=== PATIENT | male | born 1960 | race Caucasian/White ===

== ENCOUNTER 2019-01-22 07:03 | Day surgery (SDC) | payer OTHER, SELFPAY ==
--- NOTE | 2019-01-22 06:34 | COLE_ITS ---
Date of service: 01/22/19 Time of Service: 08:00 Colonoscopy Report Date of procedure: 01/22/19 Pre-op diagnosis general: Colon Cancer Screening Post-op diagnosis procedure note: other (Colorectal polyps and mild sigmoid diverticulosis) Procedure: Colonoscopy with polypectomy by cold forceps and cold snare Surgeon: Micaela Azul Anesthesia proc note operative: other (General/ ASA 2/ Dariel jackson, ROSALINA) Estimated blood loss (mL): 5 Pathology: other (rectal polyp, descending polyp and sigmoid polyp) Complications: None Disposition: same day Indications: Mr. Bergeron is a pleasant 58 year old male that was seen in the [facility] for a screening colonoscopy. Risks, benefits and complications have been reviewed. Complications include but are not limited to bleeding, pain, perforation, missed small lesion/polyp, sore throat, aspiration and adverse reaction to the medications. Questions were entertained and answered to their satisfaction and they wished to proceed. No guarantees were given or implied. Prep: Miralax/Dulcolax Procedure Start Time: 08:00 Procedure End Time: 08:36 Retraction Time: 25 minutes Findings: One pedunculated polyp in the rectum sessile polyp in the descending colon sessile polyp in the sigmoid colon Procedure Description: After informed consent was obtained the patient was taken to the procedure room and placed in a left decubitous position. Monitors were applied and a time out was done. The patients name, date of , procedure, allergies to medications and metal in their body was reviewed. The patient was then sedated. Once sedated and comfortable a rectal exam was done. External exam was normal. Internal exam revealed a normal sphincter tone and no palpable masses. The prostate felt smooth. The scope was then introduced and retro-flexed. No internal hemorrhoids were identified. There was a pedunculated polyp in the rectum. This was removed with cold forceps in 2 bites. The scope was then advanced to the cecum without difficulty. The TI and appendiceal orifice were identified. The prep was adequate. The scope was then slowly retracted over 25 minutes back into the rectum. Polyps were removed with cold forceps in the descending colon and with cold snare in the sigmoid colon. The scope was removed and the patient was woken up and taken back to Same day surgery in stable condition. The patient tolerated the procedure well and there were no immediate complications. Follow up: The patient should follow up in 3-5 years, depending on final pathology results, unless they develop changes in bowel habits or other new gastrointestinal complaints.
--- NOTE | 2019-01-22 06:34 | W.PM.DSUDISC ---
Discharge Plan Disposition Patient Disposition: HOME Condition: Good Discharge Details Reason For Visit: Colon Cancer Screening Attending Provider: Micaela Azul Primary Care Provider: Francis Yeh Home Meds and New Rx's Prescriptions: Discontinued polyethylene glycol 3350 17 gram/dose powder 238 g PO ONCE Qty: 238 RF: 0 bisacodyl [Dulcolax (bisacodyl)] 5 mg tablet,delayed release (DR/EC) 5 mg PO ONCE Qty: 4 RF: 0 Discharge Instructions Instructions: Colonoscopy (DC), Colorectal Polyps (DC), Diverticulosis (DC) Additional Instructions: Findings: 3 polyps Mild diverticulosis Follow up: 3-5 years Please call if you develop: fevers >101.5 Nausea or Vomiting Abdominal pain that is not transient DAY SURGERY UNIT POST COLONOSCOPY INSTRUCTIONS 1. Because there will be medication in your system for the next 24 hours, you may feel a little sleepy. Your coordination will be affected. Therefore: a. Do not drive or operate dangerous equipment for 24 hours. b. Do not drink alcohol beverages for 24 hours (not even beer). c. Plan to go home and rest for the day. 2. Generally there are no restrictions on your activity after a day or so has gone by, but you may feel a bit fatigued for a few days. 3 After you arrive home you may have a light meal and return to a normal diet as you can tolerate it without feeling sick to your stomach. 4. After surgery, you may feel pain or discomfort. This should be only transient, but if it persists please contact your doctor. 5. If there are any questions regarding the findings of your procedure, please feel free to contact your doctor. 6. If you are unable to contact your doctor with a problem, contact the hospital at [phone]. 7. Continue all your regular medications unless directed otherwise. I understand the above instructions and have no questions. Signature of Patient or Responsible Adult Escort Date/Time Name of Responsible Adult Escort Signature of Nurse Date/Time Activity:: Activity as Tolerated Diet:: As Tolerated Discharge Orders Discharge Orders: Discharge Order (Routine); Ordered 01/22/19 Ordered By: Micaela Azul DS: Diagnosis Discharge Diagnosis (1) S/P colonoscopy: Status: Acute (2) Colorectal polyps: Status: Acute (3) Diverticulosis large intestine w/o perforation or abscess w/o bleeding: Status: Acute
[2019-01-22 07:30] VITALS: BP 135/82; PULSE 77; RESP 16; TEMP 36.3; O2SAT 98
[2019-01-22] MEDS: Lactated Ringers 1,000 ML 80 ML IV (07:45)
--- NOTE | 2019-01-22 08:02 | BOWEL_PTH ---
PATIENT: Sky Bergeron LOC: [facility] U#:[id number] AGE/SX: 58/M ROOM: RE01/22/[address]: Micaela Azul MD : 1960 BED: DIS: 01/22/2019 SPEC #: [id number] RECD: 01/22/19 12:44 STATUS: MARLY REQ #: [id number] ZENY: 01/22/19 08:[address]: Micaela Azul DEPT: Surgical Specimen RECD BY: Liset Bray ENTERED: 01/22/19 12:46 SP TYPE: Bowel OTHR DR: Francis Yeh Tissues: 1 - BIOPSY BOWEL 2 - BIOPSY BOWEL 3 - BIOPSY BOWEL Procedures: GROSS AND MICRO LEVEL 4 Comments: [id number]
[2019-01-22 09:05] VITALS: BP 131/91; PULSE 58; RESP 16; TEMP 35.4; O2SAT 99
== END 2019-01-22 09:32 | disposition home or self-care (01) ==
PROVIDERS: PCP Internal Medicine; Visit Provider Surgery
PROC: 0DJD8ZZ Inspection of Lower Intestinal Tract, Via Natural or Artificial Opening Endoscopic (ICD-10-PCS; CPT 45378; principal; 2019-01-22 08:00)
DX: Z12.11 Encounter for screening for malignant neoplasm of colon (principal); D12.4 Benign neoplasm of descending colon; D12.5 Benign neoplasm of sigmoid colon; K62.1 Rectal polyp; K57.30 Diverticulosis of large intestine without perforation or abscess without bleeding
CPT/HCPCS: 45385; 45380; 88305

== ENCOUNTER 2019-11-13 02:00 | Outpatient (CLI) | payer OTHER, SELFPAY ==
--- NOTE | 2019-11-13 08:40 | DI.MRI_ITS ---
EXAM: MR UPPER JOINT LT WO CLINICAL HISTORY: SHOULDER IMPINGEMENT, DECREASED RANGE OF MOTION, LT SHOULDER PAIN, M25.512. TECHNIQUE: Multiplanar multisequence MRI was performed. COMPARISON: No exams were available for comparison FINDINGS: Tendons: Supraspinatus, infraspinatus and teres minor are unremarkable. There is hyperintense signal in the subscapularis tendon at its insertion site consistent with a partial tear and/or tendinosis. Biceps tendon: Unremarkable. Muscles: Unremarkable. Bones: Moderate hypertrophic changes are seen at the acromioclavicular joint. There is degenerative signal seen in the humeral head. No evidence of an occult fracture or avascular necrosis. Glenohumeral joint: The articular cartilage is unremarkable. Labrum: Intact. There is a small cyst associated with the superior labrum. This may represent a par alabral cyst. Soft tissues: No soft tissue mass or focal fluid collection. Coracoclavicular ligament: Intact. IMPRESSION: 1. Tear versus tendinosis of the subscapularis tendon. 2. Small cyst adjacent to the superior labrum. This can be seen with a labral tear.
== END 2019-11-13 02:20 ==
PROVIDERS: PCP Internal Medicine; Visit Provider Nurse Practitioner Family
DX: M25.512 Pain in left shoulder (principal); M75.42 Impingement syndrome of left shoulder; M25.612 Stiffness of left shoulder, not elsewhere classified; M75.82 Other shoulder lesions, left shoulder
CPT/HCPCS: 73221

== ENCOUNTER 2019-12-03 16:48 | Outpatient (REF) | payer OTHER, SELFPAY ==
[2019-12-03 22:34] LABS: Calculated LDL 129 mg/dL (<100); Cholesterol 248 mg/dL (<200); HDL Cholesterol 54 mg/dL (40-60); Triglyceride 326 mg/dL (<150)
[2019-12-05 10:18] LABS: PSA, Screening 0.2 ng/mL (0.0-4.5)
== END 2019-12-03 17:08 ==
LOC: NCHCN 16:48
PROVIDERS: PCP Internal Medicine; Visit Provider Internal Medicine
DX: Z00.00 Encounter for general adult medical examination without abnormal findings (principal); E78.5 Hyperlipidemia, unspecified; R68.82 Decreased libido; R53.83 Other fatigue
CPT/HCPCS: 80061; 84153; 84443

== ENCOUNTER 2019-12-04 08:58 | Outpatient (CLI) | payer OTHER, SELFPAY ==
--- NOTE | 2019-12-04 07:45 | DI.RAD_ITS ---
EXAM: XR SHOULDER LT COMPLETE 2+V CLINICAL HISTORY: Pain TECHNIQUE: COMPARISON: No exams were available for comparison FINDINGS: Two views were obtained. IMPRESSION: There are mild hypertrophic degenerative changes of the acromioclavicular and glenohumeral joints. S mall calcific density is projected over the supraspinatus insertion on greater tuberosity of the bety agustina. No other bony or soft tissue abnormality seen.
== END 2019-12-04 09:18 ==
PROVIDERS: PCP Internal Medicine; Visit Provider Student in an Organized Health Care Education/Training Program
DX: M25.512 Pain in left shoulder (principal); M19.012 Primary osteoarthritis, left shoulder
CPT/HCPCS: 73030

== ENCOUNTER 2020-01-09 10:06 | Outpatient (CLI) | payer OTHER, SELFPAY ==
[2020-01-12 09:49] LABS: SARS-CoV-2 RNA Undetected (Undetected); SARS-CoV-2 Specimen Source Nasopharynx
== END 2020-01-09 10:26 ==
PROVIDERS: PCP Internal Medicine; Visit Provider Internal Medicine
DX: Z11.59 Encounter for screening for other viral diseases (principal)
CPT/HCPCS: U0003

== ENCOUNTER 2020-02-27 18:47 | Outpatient (REF) | payer OTHER, SELFPAY ==
[2020-02-27 20:40] LABS: ALT 44 U/L (16-63); AST 26 U/L (15-37); Calculated LDL 83 mg/dL (<100); Cholesterol 212 mg/dL (<200); HDL Cholesterol 52 mg/dL (40-60); Triglyceride 389 mg/dL (<150)
== END 2020-02-27 19:07 ==
LOC: NCHCN 18:47
PROVIDERS: PCP Internal Medicine; Visit Provider Internal Medicine
DX: Z00.00 Encounter for general adult medical examination without abnormal findings (principal); E78.5 Hyperlipidemia, unspecified; R53.83 Other fatigue
CPT/HCPCS: 80061; 84450; 84460

== ENCOUNTER 2020-03-03 08:34 | Outpatient (CLI) | payer OTHER, SELFPAY ==
[2020-03-04 03:24] LABS: COVID-19 RT-PCR UVMMC Result Negative (Negative)
== END 2020-03-03 08:54 ==
PROVIDERS: PCP Internal Medicine; Visit Provider Student in an Organized Health Care Education/Training Program
DX: Z11.59 Encounter for screening for other viral diseases (principal)
CPT/HCPCS: U0003

== ENCOUNTER 2020-03-06 09:19 | Day surgery (SDC) | payer OTHER, SELFPAY ==
[2020-03-06 09:53] VITALS: BP 135/89; PULSE 66; RESP 16; TEMP 36.3; O2SAT 99
[2020-03-06] MEDS: Lactated Ringers 1,000 ML 100 ML IV (10:27)
--- NOTE | 2020-03-06 12:05 | W.PM.DSUDISC ---
Discharge Plan Disposition Patient Disposition: HOME Condition: Stable Discharge Details Reason For Visit: Left shoulder surgery Attending Provider: Mahin Akers Primary Care Provider: Francis Yeh Home Meds and New Rx's Prescriptions: New naproxen 250 mg tablet 250 - 500 mg PO BID PRN (Reason: Moderate pain or swelling) Qty: 60 RF: 0 aspirin 81 mg tablet,delayed release (DR/EC) 81 mg PO DAILY 14 Days Qty: 14 RF: 0 oxycodone 5 mg tablet 5 - 10 mg PO Q4H PRN (Reason: moderate to severe pain) Qty: 22 RF: 0 Continued nicotine 14 mg/24 hr patch 24 hour 1 patch transdermal Q24H RF: 0 atorvastatin 10 mg tablet 10 mg PO HS RF: 0 Discharge Instructions Additional Instructions: Surgery: Shoulder arthroscopy with rotator cuff repair (subscapularis only) and biceps tenodesis Activity: You should keep your arm at your side in a neutral position at all times except for physical therapy. Do not try to lift or raise your arm using your own muscles. You should use the sling whenever you are out of the house. You may have to adjust the abduction pillow or remove it for comfort. At home it is best to remove the sling and rest the arm on a pillow at your side or support the operative side with your other hand. You may allow the arm to dangle at your side. A physical therapy prescription will be provided separately today. Prescriptions: Aspirin 81 mg take 1 daily to prevent a blood clot for 2 weeks Naproxen 250 mg take 1-2 every 12 hours with a meal as needed for moderate pain Oxycodone 5 mg take 1-2 every 4-6 hours as needed for severe pain You may use [id number] Tylenol (acetaminophen) as needed for mild pain. These pain medications may be taken all at once or in different combinations as needed. Also, recommend Colace (docusate) as a stool softener as surgery and pain medicine cause constipation. Dressings: Leave dressing in place for 2-3 days. May then remove and leave open to air or cover incisions with Band-Aids. May shower after 5 days. Follow-up: 10-[address] Akers Please call the office during business hours with any questions or concerns. Let us know right away if you develop any redness, drainage, fevers, chest pain, or trouble breathing. Do not drink alcohol or drive for at least 24 hours after anesthesia. Referrals: Mahin Akers MD [ [facility] STAFF PHYSICIAN] - Discharge Orders Discharge Orders: Discharge Order (Routine); Ordered 03/06/20 Ordered By: Mahin Akers DS: Diagnosis Discharge Diagnosis (1) Left rotator cuff tear: Status: Acute (2) Impingement syndrome of left shoulder: Status: Acute (3) Tendinitis of long head of biceps brachii of left shoulder: Status: Acute (4) SLAP lesion of left shoulder: Status: Acute
--- NOTE | 2020-03-06 12:21 | W.PM.OP ---
Date of service: 03/06/20 Time of Service: 15:34 Operative Note Operative Note DATE OF PROCEDURE: 03/06/20 PRE-OP DIAGNOSIS: Left: 1. Rotator cuff tear 2. LHB tendinopathy 3. Impingement 4. SLAP Tear POST-OP DIAGNOSIS: same PROCEDURE: Left: 1. Rotator cuff repair, CPT# 73016. This involved repair of the subscapularis using anchor and sutures to reattach the rotator cuff back to the footprint of the lesser tuberosity. 2. Open biceps tenodesis, CPT# 30274. This involved reattaching the long head of the biceps tendon to the proximal humerus in the sub-pectoral area of the bicipital groove at the correct tension. 3. Extensive debridement, CPT# 48266. This involved using arthroscopic hand instruments, power instruments, and radiofrequency instruments to perform release the long head of the biceps tendon from the superior labrum, and debride areas of labral tearing, synovitis, subscapularis scarring to anterior capsule, MGHL to anterior labrum and subscapularis adhesions, and chondromalacia about the superior aspect of the bicipital groove within the glenohumeral joint anteriorly, superiorly, and posteriorly. 4. Subacromial decompression with partial acromioplasty, CPT# 64090. This involved using arthroscopic power instruments and a radiofrequency wand to complete a bursectomy and remove bone spurs on the undersurface of the acromion. The microbiology lab assistant was medically required in order to help assist in techniques above, which require positioning the arm, holding the arthroscope, and manipulating 2 to 4 instruments and sutures at the same time. This cannot be done without the help of an experienced microbiology lab assistant. SURGEON: Mahin Akers CRUDE UNIT OPERATOR: Sara Luna ANESTHESIA: GETA, regional and local ESTIMATED BLOOD LOSS: 15 PATHOLOGY: none sent COMPLICATIONS: None Patient was transported to: PACU Patient's condition: stable Implants: Arthrex: 4.75mm SwiveLocks x 1 and Unicortical Proximal Biceps Tenodesis Button Indications: The patient was diagnosed with the above conditions and appropriately indicated for surgical intervention. Please see complete medical record for details. Findings: Exam under anesthesia: Full, symmetrical range of motion. No instability. Glenohumeral joint: Significant biceps inflammation injection tendinopathy. Significant synovitis anteriorly and superiorly. Moderately sized partial upper border subscapularis tear. Significant anterior and superior labral fraying and displacement. Displaced anterior labral tissue adherent with MGHL consistent with Moore complex versus and subscapularis scarring to the anterior capsule. Small minor articular sided infraspinatus supraspinatus fraying without exposed footprint. Subacromial space: Profound bursitis. Mild subacromial bone spur. Intact bursal rotator cuff with moderate fraying. Procedure Description: The patient was taken to the operating room and transferred to the operating room table. General anesthesia was induced. While under anesthesia, bilateral shoulders were examined. The patient was positioned in the beachchair position. All bony prominences were well-padded. Preoperative antibiotics were administered. The shoulder was prepped and draped in the usual sterile fashion. The correct patient, procedure, and side of the procedure were all verified prior to incision. Starting through the posterior portal a standard complete diagnostic arthroscopy was performed of the glenohumeral joint including inspection of the long head of the biceps, anterior and superior labrum, subscapularis tendon, supraspinatus and infraspinatus tendons, and axillary recess. The glenoid and humeral head cartilage as well as the posterior labrum were inspected from an anterior viewing portal. Significant findings noted above. The biceps tendon was tenotomized from the labrum using arthroscopic scissors. The subscapularis was partially torn off of the lesser tuberosity. The lesser tuberosity footprint was prepared using hand and power instruments for tendon healing. A rigid cannula was inserted anteriorly. The arm was positioned in neutral. Using a 1 portal technique, a suture lasso was used to pass a suture tape fiber link through the lateral and superior subscapularis. This stitch was used for traction and passing of a fiber tape more medially and centrally in the subscapularis tendon body. The tap was used to localize placement of the anchor. Both sutures were passed through the anchor eyelet and the anchor was brought down to the bone with the sutures tensioned appropriately. The arm was brought through full external rotation demonstrating no restricted motion due to the repair and secure fixation of the tendon and anchor to bone. Starting through the posterior portal, the arthroscope was directed into the subacromial space. A lateral 50 yard line lateral portal was created. A combination of power instruments and a radiofrequency ablator were used to debride bursitis anteriorly, posteriorly, and laterally as well as expose and smooth bone spurring on the undersurface of the acromion. The coracoacromial ligament was partially released. The bursectomy was completed viewing laterally and working from posteriorly and the rotator cuff was thoroughly inspected with findings noted above. The shoulder was drained of arthroscopic fluid. 10 cc of 0.5% bupivacaine with epinephrine was infiltrated about a 2 to 3 cm longitudinal incision at the inferior margin of the pectoralis major localized over the long head of the biceps tendon. Blunt and sharp dissection were used to expose the tendon in the bicipital groove. The tendon was brought out of the wound and kept off the skin on top of a blue towel. The correct location for sub-pectoral fixation was localized, prepped with a rasp, and then drilled with a 3.2 mm drill pin in a unicortical fashion. Using a fiber loop suture the tendon was prepped from the musculotendinous junction a few centimeters proximal. The excess tendon was amputated. The free suture ends were then passed through the unicortical button implant. The drill pin was removed and the implant was placed into the humeral intramedullary canal. The button was flipped and the sutures were tensioned bringing the tendon down to bone. Tension and fixation were then tested and found to be appropriate. The sutures were brought up on either side of the tendon and the free ends of the suture were were tied compressing tendon to the humerus. The wound was copiously irrigated with normal saline. Subcutaneous tissue was closed using 3-0 Monocryl in a buried interrupted fashion. Skin was closed using 3-0 Monocryl in a buried subcuticular running fashion. Skin glue was applied over the incision. Mastisol was applied about the incision. The incision was covered with Telfa, gauze, and covered with a Tegaderm dressing. All portal sites were copiously irrigated. These incisions were closed using 3-0 Monocryl in a buried fashion, covered with Mastisol, Steri-Strips, Xeroform, dry gauze, and ABDs. The dressings were covered and secured with Medipore tape. The operative extremity was placed into a sling for immobilization. The patient awoke from anesthesia without complication and was transferred to the recovery room in a stable condition.
[2020-03-06] MEDS: ceFAZolin 2 GM/50 ML BAG IVPB (12:30)
[2020-03-06] MEDS: EPINEPHrine 30 MG/30 ML VIAL (13:59)
[2020-03-06 15:04] VITALS: BP 129/63; PULSE 66; RESP 18; TEMP 36.9; O2SAT 100
[2020-03-06 15:09] VITALS: BP 135/79; PULSE 66; RESP 18; TEMP 36.9; O2SAT 100
[2020-03-06 15:14] VITALS: BP 132/84; PULSE 62; RESP 18; TEMP 36.9; O2SAT 100
[2020-03-06 15:30] VITALS: BP 138/84; PULSE 62; RESP 16; TEMP 36.2; O2SAT 100
[2020-03-06 16:10] VITALS: BP 137/71; PULSE 69; RESP 18; TEMP 36; O2SAT 95
== END 2020-03-06 17:00 | disposition home or self-care (01) ==
PROVIDERS: PCP Internal Medicine; Visit Provider Student in an Organized Health Care Education/Training Program
PROC: (CPT 29805; principal; 2020-03-06 11:45)
PROC: (CPT 23430; 2020-03-06 11:45)
PROC: (CPT 29827; 2020-03-06 11:45)
DX: S46.012A Strain of muscle(s) and tendon(s) of the rotator cuff of left shoulder, initial encounter (principal); M75.42 Impingement syndrome of left shoulder; M75.22 Bicipital tendinitis, left shoulder; S43.432A Superior glenoid labrum lesion of left shoulder, initial encounter; M94.212 Chondromalacia, left shoulder; G89.18 Other acute postprocedural pain; M65.812 Other synovitis and tenosynovitis, left shoulder; W19.XXXA Unspecified fall, initial encounter; Y99.0 Civilian activity done for income or pay; F17.210 Nicotine dependence, cigarettes, uncomplicated
CPT/HCPCS: 29827; 29823; 23430; 29826; 76942; L3670; J0690; J1100; J1885; J2001; J2370; J2405; J2704

== ENCOUNTER 2021-01-01 16:19 | Outpatient (REF) | payer OTHER, SELFPAY ==
[2021-01-02 14:49] LABS: COVID-19 RT-PCR UVMMC Result Negative (Negative)
== END 2021-01-01 16:20 | disposition home or self-care (01) ==
LOC: NCHCN 16:19
PROVIDERS: PCP Internal Medicine; Visit Provider Internal Medicine
DX: Z20.822 Contact with and (suspected) exposure to COVID-19 (principal)
CPT/HCPCS: U0003

== ENCOUNTER 2021-04-07 01:31 | Outpatient (CLI) | payer OTHER, SELFPAY ==
--- NOTE | 2021-04-07 | DI.RAD_ITS ---
Exam(s) XR CERVICAL SPINE COMP 4-5V EXAM: XR CERVICAL SPINE COMP 4-5V CLINICAL HISTORY: NECK PAIN RT, M54.2 TECHNIQUE: COMPARISON: No exams were available for comparison FINDINGS: Five views were obtained. There is mild cervical kyphosis. There is narrowing of the intervertebral disc spaces at the C5-6 and C6-7 levels. There are hypertrophic endplate changes at these levels. Mild facet DJD noted throughout the cervical region. There is a question of narrowing of the neural foramen at C3-4 and C5-6 on the right and at the C3-4 level on the left. No other bony or soft tissue abnormality seen. IMPRESSION: Degenerative changes of the cervical spine as described above, please see above discussion for findin gs at individual levels. RADIATION DOSE DELIVERED: Total DLP
== END 2021-04-07 01:51 ==
PROVIDERS: PCP Internal Medicine; Visit Provider Internal Medicine
DX: M47.812 Spondylosis without myelopathy or radiculopathy, cervical region (principal)
CPT/HCPCS: 72050

== ENCOUNTER 2022-02-18 09:03 | Outpatient (REF) | payer OTHER, SELFPAY ==
[2022-02-18 15:08] LABS: HCT 46.4 % (40.0-50.0); HGB 15.4 g/dL (13.5-17.5); MCH 32.1 pg (27.0-33.0); MCHC 33.2 % (32.0-36.0); MCV 97 fL (80-95); MPV 10.2 fL (8.0-11.0); Platelet Count 240 10^3/uL (130-400); RDW 11.9 % (11.8-14.1); WBC 7.01 10^3/uL (4.4-10.8)
[2022-02-18 15:44] LABS: Anion Gap 5.4 mmol/L (3-11); BUN 17 mg/dL (7-18); CO2 30.6 mmol/L (21.0-32.0); Calculated LDL 114 mg/dL (<100); Chloride 104 mmol/L (98-107); Cholesterol 192 mg/dL (<200); Glucose 89 mg/dL (74-106); HDL Cholesterol 48 mg/dL (40-60); Potassium 5.2 mmol/L (3.5-5.1); Sodium 140 mmol/L (136-145); Triglyceride 150 mg/dL (<150)
== END 2022-02-18 09:04 | disposition home or self-care (01) ==
LOC: NCHCN 09:03
PROVIDERS: PCP Internal Medicine; Visit Provider Family Medicine
DX: R03.0 Elevated blood-pressure reading, without diagnosis of hypertension (principal); E78.5 Hyperlipidemia, unspecified; F17.210 Nicotine dependence, cigarettes, uncomplicated
CPT/HCPCS: 80048; 80061; 85027

== ENCOUNTER 2023-02-10 18:03 | Outpatient (REF) | payer OTHER, SELFPAY ==
[2023-02-10 21:53] LABS: ALT 33 U/L (16-63); AST 22 U/L (15-37)
[2023-02-10 21:57] LABS: Hemoglobin A1C 5.5 % (<5.7)
== END 2023-02-10 18:04 | disposition home or self-care (01) ==
LOC: NCHCN 18:03
PROVIDERS: PCP Internal Medicine; Visit Provider Family Medicine
DX: Z00.00 Encounter for general adult medical examination without abnormal findings (principal); E78.5 Hyperlipidemia, unspecified; Z13.1 Encounter for screening for diabetes mellitus
CPT/HCPCS: 83036; 84450; 84460

== ENCOUNTER → 2024-11-15 13:49 | Outpatient (BNVA) | payer MEDICARE, SELFPAY | PROVIDERS: PCP Family Medicine; Referring Provider Family Medicine; Visit Provider Physical Therapy Assistant | DX: Z12.11 Encounter for screening for malignant neoplasm of colon (principal) ==

== ENCOUNTER 2024-12-03 08:27 | Day surgery (SDC) | payer MEDICARE, SELFPAY ==
[2024-12-03 08:35] VITALS: BP 134/85; PULSE 93; RESP 16; TEMP 36.4; O2SAT 97
[2024-12-03] MEDS: Lactated Ringers 1,000 ML 80 ML IV (08:59)
--- NOTE | 2024-12-03 09:36 | W.ANESPRE ---
General Info Date of Service Date Performed: 12/03/24 Height: 6 ft Weight: 83.3 kg Body Mass Index (BMI): 24.9 Surgical Procedure: Operation Date: 12/03/24 09:50 Proposed Procedure Side Surgeon p Colonoscopy Lupillo Negrete MD Meds Allergies and Home Medications Allergies Allergy/AdvReac Type Severity Reaction Status Date / Time No Known Allergies Allergy Verified 12/03/24 08:44 Home Medication ?Medication ?Instructions ?Recorded atorvastatin 10 mg tablet 10 mg PO HS 03/04/20 bisacodyl 5 mg tablet,delayed 5 mg PO ONCE #4 tabs 11/15/24 release (Dulcolax (bisacodyl)) polyethylene glycol 3350 17 17 g PO ONCE #238 grams 11/15/24 gram/dose oral powder Current Visit Medications: Current Medications Generic Name Dose Route Start Last Admin Trade Name Freq PRN Reason Stop Dose Admin Ringer's Solution 1,000 mls @ 80 mls/hr 12/03/24 06:00 12/03/24 08:59 IV 12/03/24 23:59 80 mls/hr INFUSION JAMAR Administration IV Miscellaneous Supplies 1 each 12/03/24 06:00 Iv Access IV 12/03/24 23:59 DIRECTED JAMAR Sodium Chloride 0 ml 12/03/24 06:00 Normal Saline Flush 10 Ml Syr IV 12/03/24 23:59 PRN PRN Sodium Chloride 0 ml 12/03/24 06:00 Normal Saline 10 Ml Vial IJ 12/03/24 23:59 DIRECTED PRN Sterile Water 0 ml 12/03/24 06:00 Water,Injection,Sterile 10 Ml Vial IJ 12/03/24 23:59 DIRECTED PRN PFSH Active Problems Active Problems: Problem Status Onset Code SLAP lesion of left shoulder Acute 09/13/19 S43.432A Impingement syndrome of left shoulder Acute 09/13/19 M75.42 Tendinitis of long head of biceps brachii of left shoulder Acute 09/13/19 M75.22 Left rotator cuff tear Acute 09/13/19 M75.102 Diverticulosis large intestine w/o perforation or abscess w/o bleeding Acute ~01/22/19 K57.30 Colorectal polyps Acute ~01/22/19 K63.5 S/P colonoscopy Acute ~01/22/19 Z98.890 Encounter for screening colonoscopy Acute Z12.11 Medical History Medical History Left shoulder pain Chronic low back pain Skin lesion right ear Scrotal cyst Ulnar neuropathy Hyperlipidemia Cigarette smoker Surgical History Surgical History H/O hand surgery surgical repair d/t hand trauma Tobacco Smoking/Tobacco Use Status: Current every day Tobacco Type: cigarettes Alcohol Alcohol Intake: current Alcohol intake frequency: 0-2 drinks per day Alcohol type: beer Substance Use Substance use: Never Substance use type: does not use Vital Signs and Lab Results Vital Signs Most Recent Vital Signs in EMR: Most Recent Vital Signs Temp Pulse Resp BP Pulse Ox 36.4 C L 93 H 16 134/85 97 12/03/24 08:35 12/03/24 08:35 12/03/24 08:35 12/03/24 08:35 12/03/24 08:35 Lab Results Blood Type / Crossmatch: No Data to Display Complete Blood Count: No Data to Display Complete Metabolic Panel: No Data to Display Liver Function Panel: No Data to Display Coagulation Panel: No Data to Display Cardiac Panel: No Data to Display Arterial Blood Gas: No Data to Display Venous Blood Gas: No Data to Display Pancreas Panel: No Data to Display Thyroid Panel: No Data to Display Infectious Disease: No Data to Display Blood Cultures: No Data to Display Toxicology Panel: No Data to Display Anesthesia Assessment and Plan Anesthesia History Personal History: No History of Anesthesia Complications Family History: No Family History of Anesthesia Complications Exercise Tolerance Exercise Tolerance: Metabolic Equivalents>4 Pertinent Negatives Pertinent Negatives: No Symptoms of GERD Cardiac & Pulmonary Exam Cardiac Exam: Normal S1/S2 Heart Sounds Pulmonary Exam: Clear Bilateral Breath Sounds Implantable Cardiac Device Does patient have a Pacemaker or an ICD?: No Airway Exam Known Difficult Airway: No Mallampati Class: 2 Mouth Opening: Normal (> 3cm) Thyromental Distance: Greater than 3 cm Neck Range of Motion: Full ROM Neck Circumference: Normal Teeth Condition: Normal Dentition ASA Classification ASA Score: ASA 2 Emergency Case?: No NPO Status NPO Status: NPO Clears >2 hours, Solids >8 hours Anesthesia Plan Resuscitation Status: Full Code Anesthesia Technique: General Anesthesia Airway Planned: Natural Airway Monitors Used: Standard Monitors
[2024-12-03 09:37] VITALS: BMI 24.9
--- NOTE | 2024-12-03 10:19 | BOWEL_PTH ---
PATIENT: Sky Bergeron LOC: [facility] U#:[id number] AGE/SX: 64/M ROOM: RE12/03/[address]: Lupillo Negrete : 1960 BED: DIS: 12/03/2024 SPEC #: [id number] RECD: 12/03/24 13:19 STATUS: MARLY REQ #: [id number] ZENY: 12/03/24 10:[address]: Lupillo Negrete DEPT: Surgical Specimen RECD BY: Liset Bray ENTERED: 12/03/24 13:20 SP TYPE: Bowel OTHR DR: Ishmael Scott Tissues: 1 - BIOPSY BOWEL Procedures: GROSS AND MICRO LEVEL 4 Comments: [id number]
[2024-12-03 10:28] VITALS: BP 113/78; PULSE 66; RESP 17; TEMP 36.5; O2SAT 98
--- NOTE | 2024-12-03 10:34 | W.ANESPOSTOP ---
Postoperative Evaluation Date, Time and Location Date Performed: 12/03/24 Time Performed: 10:34 Patient Location: Day Surgery Unit Vital Signs Most Recent Imported Vital Signs: Most Recent Vital Signs Temp Pulse Resp BP Pulse Ox 36.5 C 66 17 113/78 98 12/03/24 10:28 12/03/24 10:28 12/03/24 10:28 12/03/24 10:28 12/03/24 10:28 Assessment Mental Status: Awake (Alert & Oriented to Patient Baseline) Airway and Respiratory Function: Patent airway with normal (patient baseline) respiratory exam Cardiovascular Function: Hemodynamically Stable Hydration Status: Adequately Hydrated Nausea & Vomiting: No Nausea or Vomiting Pain: Pt. Denies Any Pain Peripheral Nerve Block: Patient did not receive a nerve block
--- NOTE | 2024-12-03 10:38 | W.COLOREPORT ---
Date of service: 12/03/24 Time of Service: 10:38 Colonoscopy Report Procedure Description: PROCEDURES PERFORMED: 1. Colonoscopy with cold forceps polypectomy PREOPERATIVE DIAGNOSIS: Surveillance colonoscopy, colon polyps POSTOPERATIVE DIAGNOSIS: Rectal polyp, sigmoid diverticulosis SURGEON: Ramses Negrete MD INDICATION for procedure: The patient is a 64-year-old man who has a personal history of tubulovillous and adenomatous polyps. No family history of colon cancer. Last colonoscopy was 6 years ago. He has no symptoms. FINDINGS: The terminal ileum was normal. There were no polyps anywhere throughout the colon. There were a few scattered diverticuli in the sigmoid/left colon only. In the rectum, a couple centimeters above the dentate line, a 2-3 mm sessile polyp was removed with cold forceps technique. SURVEILLANCE interval/FOLLOW-UP: 3-5 years (3 years if tubulovillous histology on the polyp, 5 years otherwise) SPECIMENS: yes EBL: Minimal COMPLICATIONS: None QUALITY of prep: Excellent Procedure in detail: The patient gave written consent and was in agreement with the indications, the potential risks as well as the benefits of the procedure. They were taken to the endoscopy suite and laid in the left lateral decubitus position. A timeout was performed and anesthesia was administered which was tolerated well. I started the procedure. Digital rectal and visual examination was performed and grossly within normal limits. A well-lubricated flexible colonoscope was then introduced and passed without any notable difficulty all the way to the cecum identified by the ileocecal valve and the appendiceal orifice. Terminal ileum was intubated and looked normal. The scope was then slowly withdrawn with the above-noted findings. The patient tolerated the procedure well and was taken to the PACU in hemodynamically stable condition.
--- NOTE | 2024-12-03 10:40 | PDOC.DSDIS_ITS ---
Date of service: 12/03/24 Discharge Plan Disposition Patient Disposition: Home Condition: Good Discharge Details Attending Provider: Lupillo Negrete Primary Care Provider: Ishmael Scott Home Meds and New Rx's Prescriptions: No Action bisacodyl [Dulcolax (bisacodyl)] 5 mg tablet,delayed release (DR/EC) 5 mg PO ONCE Qty: 4 0RF Rx Instructions: Take per colonoscopy instructions provided by ordering providers office polyethylene glycol 3350 17 gram/dose powder 17 g PO ONCE Qty: 238 0RF Rx Instructions: Take per colonoscopy instructions provided by ordering providers office atorvastatin 10 mg tablet 10 mg PO HS Patient Comments: TAKE ONE TABLET BY MOUTH AT BEDTIME Discharge Instructions Additional Instructions: FINDINGS: A small polyp was found and removed today. It is nothing to worry about. It will get tested which will determine the next colonoscopy should be. Either 3 or 5 years. Mild diverticular disease was again seen today. This is extremely common, benig n and nothing needs to be done about it. Activity:: Activity as Tolerated Diet:: As Tolerated
[2024-12-03 11:08] VITALS: BP 143/84; PULSE 70; RESP 19; TEMP 36.6; O2SAT 100
== END 2024-12-03 11:27 | disposition home or self-care (01) ==
PROVIDERS: PCP Family Medicine; Visit Provider Student in an Organized Health Care Education/Training Program
PROC: 0DJD8ZZ Inspection of Lower Intestinal Tract, Via Natural or Artificial Opening Endoscopic (ICD-10-PCS; CPT 45378; principal; 2024-12-03 09:45)
DX: Z12.11 Encounter for screening for malignant neoplasm of colon (principal); K62.1 Rectal polyp; K57.30 Diverticulosis of large intestine without perforation or abscess without bleeding
CPT/HCPCS: 45380; 88305; J2003; J2704

== ENCOUNTER 2025-02-06 09:10 | Outpatient (REF) | payer MEDICARE, SELFPAY ==
[2025-02-06 14:32] LABS: ALT 30 U/L (16-63); AST 23 U/L (15-37); Albumin 3.6 g/dL (3.4-5.0); Alkaline Phosphatase 58 U/L (46-116); Anion Gap 5.1 mmol/L (3-11); BUN 14 mg/dL (7-18); Bilirubin, Total 0.4 mg/dL (0.2-1.0); CO2 29.9 mmol/L (21.0-32.0); CREATININE 0.9 mg/dL (0.70-1.30); Calculated LDL 108 mg/dL (<100); Chloride 106 mmol/L (98-107); Cholesterol 211 mg/dL (<200); Estimated GFR 94.78 (mL/min/1.73m2); Glucose 93 mg/dL (74-106); HDL Cholesterol 61 mg/dL (>or=40); Potassium 5.1 mmol/L (3.5-5.1); Sodium 141 mmol/L (136-145); Total Protein 7.2 g/dL (6.4-8.2); Triglyceride 212 mg/dL (<150)
== END 2025-02-06 09:11 | disposition home or self-care (01) ==
LOC: NCHCN 09:10
PROVIDERS: PCP Family Medicine; Visit Provider Family Medicine
DX: E78.5 Hyperlipidemia, unspecified (principal)
CPT/HCPCS: 80053; 80061

== ENCOUNTER 2025-02-26 00:49 | Outpatient (CLI) | payer MEDICARE, SELFPAY ==
--- NOTE | 2025-02-26 10:31 | DI.CTLCSR_ITS ---
Exam(s) CT CHEST LUNG CANCER SCREEN EXAM: CT CHEST LUNG CANCER SCREEN CLINICAL HISTORY: NICOTINE DEPENDENCE F17.210 SMOKER TECHNIQUE: Imaging Protocol: Axial computed tomography images with coronal and sagittal reformatted images were created and reviewed. Low dose screening protocol. COMPARISON: CT CT CHEST LUNG CANCER SCREEN from 01/21/[address] CHEST LUNG CANCER SCREEN from 03/02/2024 FINDINGS: Tracheobronchial tree: No bronchiectasis or mucus plugging. Mediastinum and Lenore: No dominant adenopathy or fluid collection. Pulmonary parenchyma: No consolidation or dominant measurable mass. No visible emphysematous changes. No significant interstitial changes. Lung Nodules: Stable 5mm nodule left lower lobe. 3mm nodule rt lower lobe. Pleura: No effusion. No pneumothorax. Heart: The heart is not dilated. No coronary artery calcifications are seen. No pericardial effusion. Aorta: Ascending Aorta measures 4.1cm. Upper abdomen: Unremarkable. Bones: Unremarkable for age. Soft Tissues: Unremarkable. IMPRESSION: Stable pulmonary nodules. Lung RADS Cat 2 - Benign Appearance / Behavior: Nodules with a very low likelihood of becoming a clin ically active cancer due to size or lack of growth Lung-RADS 1.0 CATEGORIES: Category 0 - Prior chest CT exam(s) being located for comparison. Category 1 - Annual screening in 12 months. No nodules or definitely benign nodules. Category 2 - Annual screening in 12 months. Benign appearance. Nodules with low likelihood of becomin g active cancer. Category 3 - 6-month follow-up. Probably benign. Short-term follow-up suggested. Nodules with low lik elihood of becoming active cancer. Category 4A - 3-month follow-up and CT/PET if >8 mm in size. Suspicious finding. Findings which requi re additional testing. Category 4B - Findings which require additional testing and tissue sampling. Category 4X - Category 3 or 4 nodules with additional features or imaging findings that increases the suspicion of malignancy. Modifier S- Potentially clinically significant findings (non lung cancer) RADIATION DOSE DELIVERED: !Error Total DLP DATA REPOSITORY: All CT scans at this facility are submitted to the National Radiology Data Registry (NRDR) Dose Index Registry (DIR) with the [employer] (A[employer]). RADIATION OPTIMIZATION: All CT scans at this facility use at least one of these dose optimization te chniques: automated exposure control; mA and/or kV adjustment per patient size (includes targeted exa ms where dose is matched to clinical indication); or iterative reconstruction.
== END 2025-02-26 01:09 ==
PROVIDERS: PCP Family Medicine; Visit Provider Family Medicine
DX: F17.210 Nicotine dependence, cigarettes, uncomplicated (principal); Z12.2 Encounter for screening for malignant neoplasm of respiratory organs; R91.8 Other nonspecific abnormal finding of lung field
CPT/HCPCS: 71271

== ENCOUNTER 2025-07-05 03:52 | Outpatient (CLI) | payer MEDICARE, SELFPAY ==
--- NOTE | 2025-07-05 | DI.RAD_ITS ---
Exam(s) XR KNEE RT 3V AP,LAT,NISHI EXAM: XR KNEE RT 3V AP,LAT,NISHI CLINICAL HISTORY: EFFUSION,M25.461. TECHNIQUE: 2D digital imaging was performed. Three views. COMPARISON: No exams were available for comparison FINDINGS: BONES: No acute fracture is present. No bony destructive lesion is seen. JOINTS: The knee is normally aligned. A joint effusion is seen. The joint spaces are maintained. No significant degenerative changes. SOFT TISSUE: Normal. IMPRESSION: Joint effusion. DATA REPOSITORY: RADIATION DOSE DELIVERED:
== END 2025-07-05 04:12 ==
LOC: DI 03:52
PROVIDERS: PCP Family Medicine; Visit Provider Family Medicine
DX: M25.461 Effusion, right knee (principal)
CPT/HCPCS: 73562